=== PATIENT | male | born 1990 | race Caucasian/White ===

== ENCOUNTER 2024-07-16 12:45 | Emergency (ER) | payer SELFPAY ==
[2024-07-16 14:20] LABS: SARS-CoV-2 E Target Negative; SARS-CoV-2 N2 Target Negative; SARS-CoV-2 NAA Rapid Test Not Detected (NotDetected); SARS-CoV-2 RdRP gene Negative
== END 2024-07-16 14:33 | disposition home or self-care (01) ==
LOC: CSHERS 12:45
DX: R05.1 Acute cough (principal); F17.220 Nicotine dependence, chewing tobacco, uncomplicated
CPT/HCPCS: 71045; 99283; U0002